=== PATIENT | female | born 1985 | race Caucasian/White ===

== ENCOUNTER → 2024-01-07 | Outpatient (CLI) | payer OTHER ==
[2024-01-07 15:38] LABS: Basophils # (A) 0.08 X 10*3/uL (0.00-0.10); Basophils % (A) 1.3 %; Eosinophils # (A) 0.15 X 10*3/uL (0.04-0.35); Eosinophils % (A) 2.4 %; HCT 40.6 % (37.2-46.3); HGB 13.7 g/dL (12.0-15.0); Lymphocytes # (A) 1.72 X 10*3/uL (0.90-5.00); MCH 29.6 pg (27.0-32.0); MCHC 33.7 g/dL (32.0-37.0); MCV 87.7 FL (80.0-97.0); Mean Platelet Volume 9.4 FL (9.5-12.2); Monocytes # (A) 0.57 X 10*3/uL (0.20-1.00); Monocytes % (A) 9.3 %; NRBC Per 100 WBC 0 X 10*3/uL (0.00-0.01); Neutrophils % (A) 58.7 %; Platelet Count 383 X 10*3/uL (140-440); RBC 4.63 X 10*6/uL (4.10-5.20); RDW 13.3 % (11.5-14.5); WBC 6.14 X 10*3/uL (4.50-10.00)
== END | disposition home or self-care (01) ==
LOC: LABPAT 10:01
PROVIDERS: ATTEND Obstetrics & Gynecology
DX: Z01.812 Encounter for preprocedural laboratory examination (principal); N92.0 Excessive and frequent menstruation with regular cycle
CPT/HCPCS: 36415; 85025

== ENCOUNTER 2024-01-14 06:14 | Day surgery (SDC) | payer OTHER ==
[2024-01-10 08:55] VITALS: BMI 35.4
--- NOTE | 2024-01-13 11:11 | P.HPOB ---
History of Present Illness H&P Date: 01/13/24 Chief Complaint: family planning, menorrhagia 38 year old presents for D&C hysteroscopy, endometrial ablation and laparoscopic tubal ligation. Review of Systems All systems: negative Constitutional: Denies chills, Denies fever Eyes: denies blurred vision, denies pain Ears, nose, mouth and throat: Denies headache, Denies sore throat Cardiovascular: Denies chest pain, Denies shortness of breath Respiratory: Denies cough Gastrointestinal: Denies abdominal pain, Denies diarrhea, Denies nausea, Denies vomiting Genitourinary: Denies dysuria, Denies hematuria Musculoskeletal: Denies myalgias Integumentary: Denies pruritus, Denies rash Neurological: Denies numbness, Denies weakness Psychiatric: Denies anxiety, Denies depression Endocrine: Denies fatigue, Denies weight change Past Medical History Past Medical History: Diabetes Mellitus Additional Past Medical History / Comment(s): Back pain. Chronic constipation. Migraines. History of Any Multi-Drug Resistant Organisms: None Reported Past Surgical History: Section, Cholecystectomy, Tonsillectomy Past Anesthesia/Blood Transfusion Reactions: No Reported Reaction Past Psychological History: ADD/ADHD, Depression Additional Psychological History / Comment(s): ADD. Smoking Status: Former smoker Past Alcohol Use History: Rare Additional Past Alcohol Use History / Comment(s): Quit smoking 3 yrs ago. Past Drug Use History: None Reported - Past Family History Mother Family Medical History: Deep Vein Thrombosis (DVT) Medications and Allergies Home Medications Medication Instructions Recorded Confirmed Type Atorvastatin [Lipitor] 20 mg PO Q48H 01/10/24 01/10/24 History Dextroamphetamine/Amphetamine 25 mg PO QAM 01/10/24 01/10/24 History [Dextroamphetamine/Amphetamine ER 25 mg Cap] FLUoxetine HCL [PROzac] 40 mg PO QAM 01/10/24 01/10/24 History metFORMIN HCL 500 mg PO BID 01/10/24 01/10/24 History Allergies Allergy/AdvReac Type Severity Reaction Status Date / Time banana Allergy Anaphylaxis Verified 01/10/24 08:37 hydromorphone [From Dilaudid] Allergy Anaphylaxis Verified 01/10/24 08:37 Exam Osteopathic Statement: *. No significant issues noted on an osteopathic structural exam other than those noted in the History and Physical/Consult. Heart: Regular rate and rhythm Lungs: Clear to auscultation bilaterally Abdomen: Soft, nontender Extremities: Negative Homans sign Assessment and Plan (1) Family planning Status: Acute Code(s): Z30.09 - ENCOUNTER FOR OT GENERAL CNSL AND ADVICE ON CONTRACEPTION SNOMED Code(s): 692573919 (2) Menorrhagia Status: Acute Code(s): N92.0 - EXCESSIVE AND FREQUENT MENSTRUATION WITH REGULAR CYCLE SNOMED Code(s): 562478662 Plan: D&C hysteroscopy and endometrial ablation with novasure and laparoscopic tubal ligation
[~2024-01-14 06:14] MED LIST: Pre Op ABX Message 1 EACH MISC MISCELLANE ONE
[2024-01-14] MEDS ORDERED: SCOPOLAMINE 1 MG/72 HR PATCH TRANSDERM ONE (06:20)
[2024-01-14] MEDS ORDERED: MIDAZOLAM 2 MG/2 ML VIAL IV PRN (07:00)
[2024-01-14] MEDS: IV FLUID CONTINUATION 1,000 ML IV ONE ×2 (07:00→07:47)
[2024-01-14] MEDS: LACTATED RINGERS 1,000 ML IV SCH (07:01)
[2024-01-14] MEDS: DEXAMETHASONE SOD PHOSPHATE 4 MG/ML 1 ML VIAL IV ONE (07:04)
[2024-01-14] MEDS: ONDANSETRON 4 MG/2 ML VIAL IVP ONE (07:05)
[2024-01-14] MEDS ORDERED: LIDOCAINE 1% INJ 10MG/ML (20 ML MDV) ONE (07:43)
[2024-01-14] MEDS ORDERED: KETAMINE HCL IN 0.9 % NACL 50 MG/5 ML SYRINGE ONE (07:43)
[2024-01-14] MEDS ORDERED: NEOSTIGMINE 1 MG/ML 10 ML VIAL ONE (07:43)
[2024-01-14] MEDS ORDERED: GLYCOPYRROLATE 0.2 MG/ML 2 ML VIAL ONE (07:43)
[2024-01-14] MEDS ORDERED: MIDAZOLAM 2 MG/2 ML VIAL ONE (07:43)
[2024-01-14] MEDS ORDERED: fentaNYL (PF) 50 MCG/ML 2 ML AMP ONE (07:43)
[2024-01-14] MEDS ORDERED: ROCURONIUM 10 MG/ML (5 ML VIAL) IV ONE (07:43)
[2024-01-14] MEDS ORDERED: PROPOFOL 10 MG/ML 20 ML VIAL IV ONE (07:43)
[2024-01-14] MEDS ORDERED: SUCCINYLCHOLINE CHLORIDE 200 MG/10 ML VIAL IV ONE (07:43)
[2024-01-14] MEDS: BUPIVACAINE (PF) 0.25% 30 ML VIAL SQ ONE (08:35)
--- NOTE | 2024-01-14 08:48 | P.OP ---
Date of Procedure: 01/14/24 Preoperative Diagnosis: 1. Family planning 2. Menorrhagia Postoperative Diagnosis: same Procedure(s) Performed: D&C, hysteroscopy, endometrial ablation with NovaSure and laparoscopic tubal ligation Anesthesia: RAZ Surgeon: Tasha Morel Estimated Blood Loss (ml): 3 IV fluids (ml): 500 Urine output (ml): 200 Pathology: other (endometrial curettings) Condition: stable Disposition: PACU Operative Findings: normal uterus, tubes, ovaries. Uterus sounded to 9 cm. Cavity length was 6.5 cm, width 4.3 cm, power 154 W at 60 seconds Description of Procedure: Patient is taken the operating room where general anesthesia was obtained without difficulty. She was prepped and draped in normal sterile fashion dorsal lithotomy position, legs placed in the candy cane stirrups. Bladder was drained of all urine. Weighted speculum placed in the vagina and the anterior lip the cervix was grasped with serial tooth tenaculum. The uterus sounded to 10 cm and the cervix under 3.5 cm making the cavity length 6.5 cm. The cervix was dilated to #8 Hegar dilator. Hysteroscopy was then performed. Both ostia were visualized and there was a smooth contour of the uterus. Sharp curet was then gently used to obtain endometrial curettings. The NovaSure was introduced into the uterus with a cavity length of 6.5 cm, width 4.3 cm. after cavity assessment was passed, the time of ablation was 60 seconds at 154 W. Hysteroscopy was again performed and adequate ablation was noted. the kroner manipulator was then placed. Attention was then turned to the abdomen and gloves were changed. A 10 mm infraumbilical incision was made the scalpel and 10 mm optical trocar was placed under direct visualization. A 5 mm suprapubic Incision was made and a 5 mm optical trocar was placed under direct visualization. Survey of the pelvis revealed normal uterus tubes and ovaries. The left fallopian tube was grasped with a Kleppinger and fulgurated 2-3 cm on this side in the ampullar portion. The right fallopian tube was grasped with a Kleppinger and fulgurated 2-3 cm in the ampullar portion. All instruments were then removed from the abdomen and vagina. The 10 mm infraumbilical incision was closed with 0 Vicryl and the fascial layer and then 4-0 Vicryl in a subcuticular fashion. The 5 mm incision was closed with 4-0 Vicryl in a subcuticular fashion. Patient tolerated procedure well, sponge and instrument counts correct 2 and she was taken to recovery room in stable condition.
[2024-01-14 09:05] VITALS: TEMP 96.8
[2024-01-14] MEDS: fentaNYL (PF) 50 MCG/ML 2 ML AMP IV PRN (09:09)
[2024-01-14 09:13] VITALS: RESP 16
[2024-01-14] MEDS: HYDROcodone/APAP 7.5-325MG 1 EACH TAB PO ONE (10:17)
[2024-01-14] MEDS: hydrALAZINE HCL 20 MG/ML 1 ML VIAL IVP STA (10:33)
[2024-01-14 10:53] VITALS: BP 156/90; PULSE 80
== END 2024-01-14 11:08 | disposition home or self-care (01) ==
LOC: OR 06:14
PROVIDERS: ATTEND Obstetrics & Gynecology
DX: N92.0 Excessive and frequent menstruation with regular cycle (principal); E11.9 Type 2 diabetes mellitus without complications; Z79.84 Long term (current) use of oral hypoglycemic drugs; Z30.2 Encounter for sterilization; Z87.891 Personal history of nicotine dependence; Z88.5 Allergy status to narcotic agent; Z90.49 Acquired absence of other specified parts of digestive tract
CPT/HCPCS: 58563; 58670; 81025; 88305; J2250; J0330; J0360; J1100; J2710; J2405; J2001; J3010; J2704; J0665